=== PATIENT | male | born 1955 ===

== ENCOUNTER → 2017-03-19 | Outpatient (CLI) | payer MEDICARE ==
[~2017-03-19] MED LIST: ASPIRIN EC81 MG PO; BRILINTA90 MG PO; CORDARONE,PACE200 MG PO; LIPITOR80 MG PO; LOPRESSOR25 MG PO
[2017-03-19 12:59] LABS: ALBUMIN 4.1 gm/dL (3.5-5.0); TOTAL BILIRUBIN 1.2 mg/dL (0.0-1.5); TOTAL PROTEIN 7.5 g/dL (6.0-8.4)
== END ==
LOC: LCNC 12:39
PROVIDERS: Internal Medicine Interventional Cardiology
DX: I25.10 Atherosclerotic heart disease of native coronary artery without angina pectoris (principal); Z79.899 Other long term (current) drug therapy

== ENCOUNTER → 2017-05-04 | Outpatient (CLI) | payer MEDICARE ==
[2017-05-04 14:47] LABS: ALBUMIN 3.9 gm/dL (3.5-5.0); TOTAL BILIRUBIN 1.1 mg/dL (0.0-1.5); TOTAL PROTEIN 7.2 g/dL (6.0-8.4)
== END | disposition disaster alternative care site (69) ==
LOC: LCNC 13:26
PROVIDERS: Internal Medicine Interventional Cardiology
DX: Z79.899 Other long term (current) drug therapy (principal)

== ENCOUNTER → 2017-06-04 | Outpatient (CLI) | payer MEDICARE | END | disposition disaster alternative care site (69) | LOC: LCNC 14:56 | DX: Z79.899 Other long term (current) drug therapy (principal) ==